=== PATIENT | female | born 1990 | race Caucasian/White ===

== ENCOUNTER 2017-02-07 19:42 | Emergency (ER) | payer SELFPAY ==
[~2017-02-07] VITALS: Ht 167.6 cm; Wt 112.2 kg
[~2017-02-07 19:42] MED LIST: IBUP600 PO; OXYC1SOL5 PO; PRENCAP6 PO
[2017-02-07 19:47] VITALS: BP 120/78; PULSE 83; RESP 18; TEMP 97.6; O2SAT 98
--- NOTE | 2017-02-07 20:12 | PD ---
HPI Chief Complaint: Abdominal Pain Time Seen by Provider: 19:56 Travel History International Travel<30 days: No Contact w/Intl Traveler<30days: No Traveled to known affect area: No History of Present Illness HPI The patient is a 26-year-old female, frequent visitor to the emergency department for minor problems who complains of nausea vomiting and left flank pain beginning today at 2 PM. The patient already went to [facility] in [facility] and the CT was done which was negative. Blood and urine and reportedly as negative there as well. She comes in to this hospital wanting something for primarily for the stabbing pain on her left. She has had this pain intermittently for over a year. She has multiple visits to our hospital system for similar pain. She was given a prescription for Zofran at [facility] and a shot of Norflex and Toradol. [facility] Past Medical History Medical History: Denies Significant Hx Tetanus Vaccination: < 5 Years Influenza Vaccination: No ?: Not LMP: 2 DAYS : 1 Para: 1 Past Surgical History Section: Yes Cholecystectomy: Yes Social History Alcohol Use: Yes (Occasionally) Tobacco Use: No Substance Use: No Allergies-Medications (Allergen,Severity, Reaction): Coded Allergies: No Known Allergies (Unverified , 02/07/17) Reported Meds & Prescriptions Reported Meds & Active Scripts Active No Active Prescriptions or Reported Medications Review of Systems Except as stated in HPI: all other systems reviewed are Neg Physical Exam Narrative GENERAL: The patient is obese, alert, oriented 3 and slight apparent distress with her left flank pain. Her vital signs are normal. SKIN: Focused skin assessment warm/dry. No skin rash is noted. HEAD: Atraumatic. Normocephalic. EYES: Pupils equal and round. No scleral icterus. No injection or drainage. ENT: No nasal bleeding or discharge. Mucous membranes pink and moist. NECK: Trachea midline. No JVD. CARDIOVASCULAR: Regular rate and rhythm. No murmur appreciated. RESPIRATORY: No accessory muscle use. Clear to auscultation. Breath sounds equal bilaterally. I can completely reproduce the patient's pain by pressing on the left floating ribs at the end of the ribs. GASTROINTESTINAL: Abdomen soft, non-tender, nondistended. Hepatic and splenic margins not palpable. MUSCULOSKELETAL: No obvious deformities. No clubbing. No cyanosis. No edema. NEUROLOGICAL: Awake and alert. No obvious cranial nerve deficits. Motor grossly within normal limits. Normal speech. PSYCHIATRIC: Appropriate mood and affect; insight and judgment normal. Data Data Last Documented VS Vital Signs Date Time Temp Pulse Resp B/P Pulse Ox O2 Delivery O2 Flow Rate FiO2 02/07/17 21:15 78 18 120/63 100 Room Air 02/07/17 19:47 97.6 Orders Complete Blood Count With Diff (02/07/17 20:12) Urinalysis - C+S If Indicated (02/07/17 20:12) Comprehensive Metabolic Panel (02/07/17 20:16) Lipase (02/07/17 20:16) Sodium Chlor 0.9% 1000 Ml Inj (Ns 1000 M (02/07/17 20:30) Ketorolac Inj (Toradol Inj) (02/07/17 20:30) Ondansetron Inj (Zofran Inj) (02/07/17 21:15) Tramadol (Ultram) (02/07/17 21:30) Labs Laboratory Tests Test 02/07/17 02/07/17 20:20 21:00 White Blood Count 6.9 TH/MM3 Red Blood Count 4.96 MIL/MM3 Hemoglobin 13.6 GM/DL Hematocrit 40.8 % Mean Corpuscular Volume 82.2 FL Mean Corpuscular Hemoglobin 27.5 PG Mean Corpuscular Hemoglobin 33.5 % Concent Red Cell Distribution Width 13.6 % Platelet Count 313 TH/MM3 Mean Platelet Volume 7.4 FL Neutrophils (%) (Auto) 70.4 % Lymphocytes (%) (Auto) 20.4 % Monocytes (%) (Auto) 6.4 % Eosinophils (%) (Auto) 2.5 % Basophils (%) (Auto) 0.3 % Neutrophils # (Auto) 4.8 TH/MM3 Lymphocytes # (Auto) 1.4 TH/MM3 Monocytes # (Auto) 0.4 TH/MM3 Eosinophils # (Auto) 0.2 TH/MM3 Basophils # (Auto) 0.0 TH/MM3 CBC Comment DIFF FINAL Differential Comment Sodium Level 143 MEQ/L Potassium Level 4.2 MEQ/L Chloride Level 109 MEQ/L Carbon Dioxide Level 25.6 MEQ/L Anion Gap 8 MEQ/L Blood Urea Nitrogen 13 MG/DL Creatinine 0.68 MG/DL Estimat Glomerular Filtration 104 ML/MIN Rate Random Glucose 79 MG/DL Calcium Level 8.7 MG/DL Total Bilirubin 0.3 MG/DL Aspartate Amino Transf 14 U/L (AST/SGOT) Alanine Aminotransferase 23 U/L (ALT/SGPT) Alkaline Phosphatase 64 U/L Total Protein 7.0 GM/DL Albumin 3.5 GM/DL Lipase 90 U/L Urine Color YELLOW Urine Turbidity CLEAR Urine pH 6.0 Urine Specific [place] 1.032 Urine Protein NEG mg/dL Urine Glucose (UA) NEG mg/dL Urine Ketones 80 OR GREATER mg/dL Urine Occult Blood NEG Urine Nitrite NEG Urine Bilirubin NEG Urine Leukocyte Esterase NEG Urine RBC 0-3 /hpf Urine Squamous Epithelial 0-5 /hpf Cells Urine Calcium Oxalate Crystals FEW /hpf Urine Amorphous Sediment FEW Urine Mucus MOD /lpf Microscopic Urinalysis Comment CULT NOT INDICATED MDM Medical Decision Making Medical Screen Exam Complete: Yes Emergency Medical Condition: Yes Medical Record Reviewed: Yes Interpretation(s) The CBC and complete metabolic profile are normal. The urine shows 80 ketones or greater and a few calcium oxalate crystals but is otherwise normal and culture is not indicated. Differential Diagnosis Musculoskeletal painchronic intermittent, urinary tract infection, ureteral stoneunlikely Narrative Course The patient appears to have musculoskeletal pain. She also has some nausea with this pain. She will be given Zofran and Motrin 600 mg 3 times daily. She is to follow-up with a primary care physician. Diagnosis Primary Impression: Musculoskeletal pain Additional Instructions: It appears that this pain is been coming on and off for over a year. Take the Motrin regularly, 1 tablet 3 times daily. Usually this pain will go away when you achieve high anti-inflammatory levels after about 3 or 4 days. Follow-up next week with a primary care physician. Med/Other Pt SpecificInfo: Prescription(s) given Scripts Ibuprofen 600 Mg [id number] Mg PO TID #33 TAB Ref 0 Prov:Daron Shultz MD 02/07/17 Disposition: 01 DISCHARGE HOME Condition: Stable Daron Shultz MD Feb 07, 2017 20:12
[2017-02-07 20:15] VITALS: BP 144/76; PULSE 79; RESP 18; O2SAT 99
[2017-02-07 20:29] LABS: AUTOMATED NEUTROPHIL # 4.8 TH/MM3 (1.8-7.7); BASOPHIL % 0.3 % (0.0-2.0); EOSINOPHIL # 0.2 TH/MM3 (0-0.4); EOSINOPHIL % 2.5 % (0.0-4.0); HEMATOCRIT 40.8 % (35.0-46.0); HEMO FLAGS DIFF FINAL; LYMPH % 20.4 % (9.0-44.0); LYMPHOCYTE # 1.4 TH/MM3 (1.0-4.8); MEAN CELL VOLUME 82.2 FL (80.0-100.0); MEAN CORPUSCULAR HEMOGLOBIN 27.5 PG (27.0-34.0); MEAN CORPUSCULAR HGB CONC 33.5 % (32.0-36.0); MONO % 6.4 % (0.0-8.0); NEUT % 70.4 % (16.0-70.0); PLATELET COUNT 313 TH/MM3 (150-450); RED BLOOD COUNT 4.96 MIL/MM3 (4.00-5.30); RED CELL DISTRIBUTION WIDTH 13.6 % (11.6-17.2); WHITE BLOOD COUNT 6.9 TH/MM3 (4.0-11.0)
[2017-02-07] MEDS ORDERED: KETOROLAC TROMETHAMINE 60 MG/2 ML (IM) VIAL IVP ONE (20:30)
[2017-02-07] MEDS ORDERED: SODIUM CHLOR 0.9% 1000 ML INJ 1,000 ML IV SCH (20:30)
[2017-02-07 20:48] LABS: CHLORIDE 109 MEQ/L (98-107); POTASSIUM 4.2 MEQ/L (3.5-5.1); SODIUM (NA) 143 MEQ/L (136-145)
[2017-02-07 20:52] LABS: ANION GAP 8 MEQ/L (5-15); BICARBONATE 25.6 MEQ/L (21.0-32.0); BLOOD UREA NITROGEN 13 MG/DL (7-18)
[2017-02-07 20:55] LABS: ALT (GPT) 23 U/L (10-53); AST (GOT) 14 U/L (15-37); GLOMERULAR FILTRATION RATE 104 ML/MIN (>89)
[2017-02-07 20:56] LABS: TOTAL BILIRUBIN ADULT 0.3 MG/DL (0.2-1.0)
[2017-02-07 20:58] LABS: ALKALINE PHOSPHATASE 64 U/L (45-117)
[2017-02-07 21:15] VITALS: BP 120/63; PULSE 78; RESP 18; O2SAT 100
[2017-02-07] MEDS ORDERED: ONDANSETRON HCL 4 MG/2 ML VIAL IV ONE (21:15)
[2017-02-07 21:19] LABS: BLOOD, URINE NEG (NEG); GLUCOSE,URINE NEG (NEG); NITRITE,URINE NEG (NEG)
[2017-02-07] MEDS ORDERED: traMADol HCL 50 MG TAB PO ONE (21:30)
[2017-02-07 21:45] LABS: KETONE, URINE 80 OR GREATER mg/dL (NEG)
[2017-02-07 21:46] LABS: URINE COLOR YELLOW (YELLW/STRAW)
[2017-02-07 21:47] LABS: MUCUS URINE MOD /lpf (OCC); SQUAMOUS EPITHELIAL CELL URINE 0-5 /hpf (0-5)
[2017-02-07 21:48] LABS: RBC, URINE 0-3 /hpf (0-3)
[2017-02-07 21:49] LABS: CALCIUM OXALATE CRYSTALS,URINE FEW /hpf; COMMENT (UR) CULT NOT INDICATED; CULTURE IF INDICATED CULT NOT INDICATED
[2017-02-07] MEDS ORDERED: IBUP-232 PO (22:09)
[2017-02-07 22:18] VITALS: RESP 18
[2017-02-07 22:25] VITALS: BP 116/65; TEMP 97.5
== END 2017-02-07 22:25 | disposition home or self-care (01) ==
LOC: PHED 19:42
DX: M79.1 Myalgia (principal)
CPT/HCPCS: 80053; 81001; 83690; 85025; 96361; 96374; 96375; 99284; J1885; J2405; J7030

== ENCOUNTER 2017-03-15 15:22 | Emergency (ER) | payer MEDICAID ==
[~2017-03-15] VITALS: Ht 167.6 cm; Wt 107.0 kg
[~2017-03-15 15:22] MED LIST changes: +IBUP-232 PO; -IBUP600 PO; -OXYC1SOL5 PO; -PRENCAP6 PO
[2017-03-15 15:26] VITALS: BP 125/59; PULSE 93; RESP 20; TEMP 98.1; O2SAT 98
--- NOTE | 2017-03-15 16:22 | PD ---
HPI Chief Complaint: Back/ Neck Pain or Injury Time Seen by Provider: 16:20 Travel History International Travel<30 days: No Contact w/Intl Traveler<30days: No Traveled to known affect area: No History of Present Illness HPI 26-year-old female with chief complaint of mid low back pain times one day. Patient reports while working in the [employer] she was bending over using a meat trimmer and felt a pop sensation in her low back and has had intense pain since. Patient reports the pain is localized to the low mid back, nonradiating , worse with movement, slightly improved with rest. She denies fever, chills, incontinence, saddle anesthesia, numbness/tingling/weakness in lower extremities. PFSH Past Medical History Medical History: Denies Significant Hx ?: Unknown LMP: 3.5 WEEKS AGO : 1 Para: 1 Past Surgical History Section: Yes Cholecystectomy: Yes Social History Alcohol Use: Yes (Occasionally) Tobacco Use: No Substance Use: No Allergies-Medications (Allergen,Severity, Reaction): Coded Allergies: No Known Allergies (Unverified , 02/07/17) Reported Meds & Prescriptions Reported Meds & Active Scripts Active Ibuprofen 600 Mg Tab 600 Mg PO TID Review of Systems Except as stated in HPI: all other systems reviewed are Neg General / Constitutional: No: Fever Eyes: No: Visual changes HENT: No: Headaches Cardiovascular: No: Chest Pain or Discomfort Respiratory: No: Shortness of Breath Gastrointestinal: No: Abdominal Pain Genitourinary: No: Dysuria Musculoskeletal: No: Pain Physical Exam Narrative GENERAL: Well-nourished, well-developed patient. SKIN: Focused skin assessment warm/dry. HEAD: Normocephalic. EYES: No scleral icterus. No injection or drainage. NECK: Supple, trachea midline. No JVD or lymphadenopathy. CARDIOVASCULAR: Regular rate and rhythm without murmurs, gallops, or rubs. RESPIRATORY: Breath sounds equal bilaterally. No accessory muscle use. GASTROINTESTINAL: Abdomen soft, non-tender, nondistended. MUSCULOSKELETAL: No cyanosis, or edema. Normal strength and sensation of lower extremities BACK: without obvious deformity. No CVA tenderness. Tender to palpation lumbar spine. Negative straight leg raise. 2+ DTRs Data Data Last Documented VS Vital Signs Date Time Temp Pulse Resp B/P Pulse Ox O2 Delivery O2 Flow Rate FiO2 03/15/17 15:26 98.1 93 20 125/59 98 Orders Spine, Lumbar Comp W/Obliq (03/15/17 ) Ed Urine Pregnancytest Poc (03/15/17 16:19) MDM Medical Decision Making Medical Screen Exam Complete: Yes Emergency Medical Condition: Yes Differential Diagnosis Lumbar strain versus sprain versus fracture Narrative Course 26-year-old female with chief complaint low back pain status post bending and twisting injury while at work yesterday. Patient reports pain is localized to the midline low back region. Her physical exam is reassuring. She has tenderness to the lumbar spine. X-ray reveal no fracture. Patient will be treated for lumbar strain and instructed to follow-up with her primary care doctor she verbalizes understanding and agrees to plan. Diagnosis Primary Impression: Low back pain Qualified Code: M54.5 - Acute midline low back pain without sciatica Referrals: Primary Care Physician Departure Forms: Tests/Procedures, Work Release Enter return to work date: Mar 16, 2017 Additional Instructions: Take the medication as prescribed. Avoid heavy lifting or strenuous activity. Follow-up with her primary care doctor. Return to emergency department if he developed new or worsening symptoms. Scripts Methocarbamol (Robaxin)500 Mg [id number] Mg PO TID PRN (MUSCLE SPASM) #12 TAB Prov:Keshia Bagley 03/15/17 Ibuprofen 800 Mg [id number] Mg PO Q8H PRN (Pain/Inflammation) #30 TAB Prov:Keshia Bagley 03/15/17 Disposition: 01 DISCHARGE HOME Condition: Stable Keshia Bagley Mar 15, 2017 16:22
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
[2017-03-15] MEDS ORDERED: ROBA500T PO (17:14)
[2017-03-15] MEDS ORDERED: IBUP800T23 PO (17:14)
[2017-03-15] MEDS ORDERED: KETOROLAC TROMETHAMINE 60 MG/2 ML (IM) VIAL IM ONE (17:15)
== END 2017-03-15 17:33 | disposition home or self-care (01) ==
LOC: PHED 15:22
DX: M54.5 Low back pain (principal); S39.012A Strain of muscle, fascia and tendon of lower back, initial encounter; X50.1XXA Overexertion from prolonged static or awkward postures, initial encounter; Y93.G1 Activity, food preparation and clean up; Y92.512 Supermarket, store or market as the place of occurrence of the external cause; Y99.0 Civilian activity done for income or pay
CPT/HCPCS: 72110; 84703; 96372; 99284; J1885

== ENCOUNTER 2017-08-07 17:19 | Emergency (ER) | payer MEDICAID ==
[~2017-08-07] VITALS: Ht 167.6 cm; Wt 114.4 kg
[~2017-08-07 17:19] MED LIST changes: +IBUP1TAB7 PO; +ROBA500T PO
[2017-08-07 17:23] VITALS: BP 150/65; PULSE 101; RESP 16; TEMP 98; O2SAT 99
--- NOTE | 2017-08-07 17:48 | PD ---
HPI Chief Complaint: Abdominal Pain Time Seen by Provider: 17:39 Travel History International Travel<30 days: No Contact w/Intl Traveler<30days: No Traveled to known affect area: No History of Present Illness HPI The patient was seen and examined in the presence of the nurse. This patient complains of left flank and left lower quadrant abdominal pain. Duration is one year. He never had it evaluated. No injury. Denies fever or vaginal discharge or bleeding. She doesn't think she is . Eating does not affect the pain. Symptoms severity is moderate. No alleviating factors. No exacerbating factors PFSH Past Medical History Hx Anticoagulant Therapy: No Diabetes: No ?: Not : 1 Para: 1 Past Surgical History Section: Yes Cholecystectomy: Yes Social History Alcohol Use: Yes (Occasionally) Tobacco Use: No Substance Use: No Allergies-Medications (Allergen,Severity, Reaction): Coded Allergies: No Known Allergies (Unverified Adverse Reaction, Unknown, 08/07/17) Reported Meds & Prescriptions Reported Meds & Active Scripts Active Tramadol (Tramadol HCl) 50 Mg Tab 50 Mg PO Q6H PRN Zofran (Ondansetron HCl) 4 Mg Tab 4 Mg PO Q6HR PRN Robaxin (Methocarbamol) 500 Mg Tab 500 Mg PO TID PRN Ibuprofen 800 Mg Tab 800 Mg PO Q8H PRN Ibuprofen 600 Mg Tab 600 Mg PO TID Review of Systems General / Constitutional: No: Fever Eyes: No: Visual changes HENT: No: Headaches Cardiovascular: No: Chest Pain or Discomfort Respiratory: No: Shortness of Breath Gastrointestinal: Positive: Abdominal Pain Genitourinary: Positive: Flank Pain, No: Dysuria Musculoskeletal: No: Pain Skin: No Rash Neurologic: No: Weakness Psychiatric: No: Depression Endocrine: No: Polydipsia Hematologic/Lymphatic: No: Easy Bruising Physical Exam Narrative GENERAL: Well-nourished, well-developed patient with left side pain . SKIN: Focused skin assessment reveals no rash and nodules. Skin is Warm and dry. HEAD: Atraumatic. Normocephalic. EYES: Pupils equal and round. No scleral icterus. No injection or drainage. ENT: No nasal bleeding or discharge. Mucous membranes pink and moist. NECK: Trachea midline. No JVD. CARDIOVASCULAR: Regular rate and rhythm. No murmur appreciated. RESPIRATORY: No accessory muscle use. Clear to auscultation. Breath sounds equal bilaterally. GASTROINTESTINAL: Abdomen soft, left lower quadrants tender without rebound or guarding, nondistended. Hepatic and splenic margins not palpable. MUSCULOSKELETAL: No obvious deformities. No clubbing. No cyanosis. No edema. Some left-sided CVA tenderness NEUROLOGICAL: Awake and alert. No obvious cranial nerve deficits. Motor grossly within normal limits. Normal speech. PSYCHIATRIC: Appropriate mood and affect; insight and judgment normal. Data Data Last Documented VS Vital Signs Date Time Temp Pulse Resp B/P (MAP) Pulse Ox O2 Delivery O2 Flow Rate FiO2 08/07/17 17:23 98.0 101 16 150/65 (93) 99 Orders Orders Urinalysis - C+S If Indicated (08/07/17 17:25) Ed Urine Pregnancytest Poc (08/07/17 17:25) Ct Abd/Pel W/O Iv Contrast (08/07/17 ) Ondansetron Odt (Zofran Odt) (08/07/17 18:15) Acetamin-Hydrocod 325-5 Mg ([place] 5-325 (08/07/17 18:45) Labs Laboratory Tests Test 08/07/17 17:50 Urine Collection Type CLEAN CATCH Urine Color YELLOW Urine Turbidity SLIGHT Urine pH 6.0 Urine Specific [place] 1.025 Urine Protein NEG mg/dL Urine Glucose (UA) NEG mg/dL Urine Ketones NEG mg/dL Urine Occult Blood TRACE Urine Nitrite NEG Urine Bilirubin NEG Urine Leukocyte Esterase NEG Urine RBC 0-3 /hpf Urine Squamous Epithelial Cells > 8 /hpf Urine Amorphous Sediment MOD Microscopic Urinalysis Comment CULT NOT INDICATED Urine Collection Time 1750 [facility] Medical Decision Making Medical Screen Exam Complete: Yes Emergency Medical Condition: Yes Medical Record Reviewed: Yes Differential Diagnosis Ectopic, kidney stone, ovarian cystic disease Narrative Course I have reviewed the patient's electronic medical record. Urine is negative Urinalysis is clean CT of abdomen and pelvis is negative except for a 1 mm nonobstructing stone which is incidental Etiology of her 1 year pain is unclear. Recommend primary care follow-up. I wrote some medicine for pain and nausea to use as needed Diagnosis Primary Impression: Chronic left flank pain Additional Instructions: The patient was advised to follow up with their physician and return if they worsen. The patient was warned about potential sedation for the medications they will receive on prescription. Med/Other Pt SpecificInfo: Prescription(s) given Scripts Tramadol (Tramadol) 50 Mg Tab 50 MG PO Q6H Y for PAIN, #20 TAB 0 Refills Prov: Remy Vela MD 08/07/17 Ondansetron (Zofran) 4 Mg Tab 4 MG PO Q6HR Y for NAUSEA OR VOMITING, #15 TAB 0 Refills Prov: Remy Vela MD 08/07/17 Disposition: 01 DISCHARGE HOME Condition: Stable Remy Vela MD Aug 07, 2017 17:48
[2017-08-07 18:07] LABS: BILIRUBIN, URINE NEG (NEG); BLOOD, URINE TRACE (NEG); GLUCOSE,URINE NEG (NEG); KETONE, URINE NEG (NEG); NITRITE,URINE NEG (NEG); URINE LEUKOCYTE ESTERASE NEG (NEG)
[2017-08-07] MEDS ORDERED: ONDANSETRON ODT 4 MG TAB PO ONE (18:15)
[2017-08-07 18:16] LABS: URINE COLOR YELLOW (YELLW/STRAW)
[2017-08-07 18:17] LABS: AMORPHOUS SEDIMENT, URINE MOD; RBC, URINE 0-3 /hpf (0-3); SQUAMOUS EPITHELIAL CELL URINE > 8 /hpf (0-5)
--- NOTE | 2017-08-07 18:19 | RADRPT ---
EXAM DATE/TIME: 08/07/2017 18:01 [facility] COMPARISON: No previous studies available for comparison. INDICATIONS : Left flank pain. Evaluate for renal calculi. ORAL CONTRAST: No oral contrast ingested. RADIATION DOSE: 25.93 CTDIvol (mGy) ; Patient body habitus MEDICAL HISTORY : None SURGICAL HISTORY : Cholecystectomy. section. ENCOUNTER: Initial ACUITY: 1 yr PAIN SCALE: 5/10 LOCATION: Left flank TECHNIQUE: Volumetric scanning of the abdomen and pelvis was performed. Using automated exposure control and ad justment of the mA and/or kV according to patient size, radiation dose was kept as low as reasonably achievable to obtain optimal diagnostic quality images. DICOM format image data is available electro nically for review and comparison. FINDINGS: CT Abdomen: The liver, spleen, pancreas, right kidney, adrenals are unremarkable. There is no evidenc e for any appreciable pathological adenopathy, free fluid, or bowel obstruction. There is a tiny 1 m m nonobstructing stone in the left kidney. There is no ureteral stone and there is no hydronephrosis on either side. CT pelvis: There is no evidence for mass, abscess formation, or any significant adenopathy within the pelvis. CONCLUSION: Tiny nonobstructing stone left kidney. Sincere Martinez MD on August 07, 2017 at 18:14 Board Certified Radiologist. This report was verified electronically.
[2017-08-07] MEDS ORDERED: TRAM50TA PO (18:36)
[2017-08-07] MEDS ORDERED: ZOFR4TAB PO (18:36)
[2017-08-07] MEDS ORDERED: ACETAMINOPHEN/HYDROcodone 325 MG/5 MG TAB PO ONE (18:45)
[2017-08-07 19:06] VITALS: BP 152/66; PULSE 90; RESP 18; O2SAT 98
== END 2017-08-07 19:20 | disposition home or self-care (01) ==
LOC: PHED 17:19
DX: R10.9 Unspecified abdominal pain (principal); R10.32 Left lower quadrant pain; G89.29 Other chronic pain; R11.0 Nausea
CPT/HCPCS: 74176; 81001; 84703; 99284

== ENCOUNTER 2017-12-14 18:41 | Emergency (ER) | payer MEDICAID ==
[~2017-12-14] VITALS: Ht 167.6 cm; Wt 106.0 kg
[~2017-12-14 18:41] MED LIST changes: +TRAM50TA PO; +ZOFR4TAB PO
[2017-12-14 18:57] VITALS: BP 136/70; PULSE 98; RESP 18; TEMP 98.7; O2SAT 99
--- NOTE | 2017-12-14 20:58 | PD ---
HPI Chief Complaint: Back/ Neck Pain or Injury Time Seen by Provider: 20:48 Travel History International Travel<30 days: No Contact w/Intl Traveler<30days: No Traveled to known affect area: No History of Present Illness HPI 27yo F with no PMH presents with lower back pain s/p trip and fall at 6pm today. Said she was getting out of work and her pants are too long so she tripped and fell on her left side. When her coworker helped her up, she thought she heard a pop in her back. Pt able to ambulate after but with pain. Denies any focal weakness or numbness, head trauma, LOC, chest pain, sob, n/v, abdominal pain, urinary incontinence. Pt did not take anything for pain at home. PFSH Past Medical History Hx Anticoagulant Therapy: No Diabetes: No ?: Not LMP: 12/22/17 : 1 Para: 1 Past Surgical History Section: Yes Cholecystectomy: Yes Social History Alcohol Use: Yes (Occasionally) Tobacco Use: No Substance Use: No Allergies-Medications (Allergen,Severity, Reaction): Coded Allergies: No Known Allergies (Unverified Adverse Reaction, Unknown, 08/07/17) Reported Meds & Prescriptions Reported Meds & Active Scripts Active Tramadol (Tramadol HCl) 50 Mg Tab 50 Mg PO Q6H PRN Zofran (Ondansetron HCl) 4 Mg Tab 4 Mg PO Q6HR PRN Robaxin (Methocarbamol) 500 Mg Tab 500 Mg PO TID PRN Ibuprofen 800 Mg Tab 800 Mg PO Q8H PRN Ibuprofen 600 Mg Tab 600 Mg PO TID Review of Systems Except as stated in HPI: all other systems reviewed are Neg Physical Exam Narrative GENERAL: 27yo F in mild distress. SKIN: Focused skin assessment warm/dry. HEAD: Atraumatic. Normocephalic. EYES: Pupils equal and round. No scleral icterus. No injection or drainage. ENT: No nasal bleeding or discharge. Mucous membranes pink and moist. NECK: Trachea midline. No JVD. CARDIOVASCULAR: Regular rate and rhythm. No murmur appreciated. RESPIRATORY: No accessory muscle use. Clear to auscultation. Breath sounds equal bilaterally. GASTROINTESTINAL: Abdomen soft, non-tender, nondistended. BACK: +TTP midline L4-L5. +Left paraspinal muscle L4-L5. MUSCULOSKELETAL: No obvious deformities. No clubbing. No cyanosis. No edema. NEUROLOGICAL: Awake and alert. No obvious cranial nerve deficits. Motor grossly within normal limits in all extremities. Sensation equal bilaterally. Normal speech. PSYCHIATRIC: Appropriate mood and affect; insight and judgment normal. Data Data Last Documented VS Vital Signs Date Time Temp Pulse Resp B/P (MAP) Pulse Ox O2 Delivery O2 Flow Rate FiO2 12/14/17 18:57 98.7 98 18 136/70 (92) 99 Orders Orders Diazepam (Valium) (12/14/17 21:00) Ketorolac Inj (Toradol Inj) (12/14/17 21:00) Spine, Lumbar - Ltd (Ap & Lat) (12/14/17 ) Acetamin-Hydrocod 325-5 Mg ([place] 5-325 (12/14/17 22:30) MDM Medical Decision Making Medical Screen Exam Complete: Yes Emergency Medical Condition: Yes Differential Diagnosis Musculoskeletal pain vs. muscle sprain vs. disc herniation vs. fracture vs. contusion Narrative Course 27yo F with lower back pain s/p mechanical fall today. No focal neurologic deficits. Xray LS unremarkable. Pt given valium and toradol but still with pain. Pt then given lortab and said pain has resolved. Pt feels better and wants to go home. Return precautions given. Diagnosis Primary Impression: Low back pain Qualified Codes: M54.5 - Low back pain Patient Instructions: General Instructions Departure Forms: Tests/Procedures Additional Instructions: Please follow up with your primary care physician in 2-3 days. Return to the ED if symptoms worsen. Med/Other Pt SpecificInfo: Prescription(s) given Scripts Acetaminophen (Tylenol) 325 Mg Tab 650 MG PO Q6H Y for PAIN SCALE 1 TO 4, #20 TAB 0 Refills Prov: Rose Mary Westbrook 12/14/17 Disposition: 01 DISCHARGE HOME Condition: Stable Rose Mary Westbrook December 14, 2017 20:58
[2017-12-14] MEDS ORDERED: DIAZEPAM 5 MG TAB PO ONE (21:00)
[2017-12-14] MEDS ORDERED: KETOROLAC TROMETHAMINE 60 MG/2 ML (IM) VIAL IM ONE (21:00)
--- NOTE | 2017-12-14 21:16 | RADRPT ---
EXAM DATE/TIME: 12/14/2017 21:09 [facility] COMPARISON: No previous studies available for comparison. INDICATIONS : Pain due to fall MEDICAL HISTORY : None. SURGICAL HISTORY : section. Cholecystectomy. ENCOUNTER: Initial ACUITY: 1 day PAIN SCORE: 7/10 LOCATION: L-spine FINDINGS: Two view examination was performed. There are five non-rib bearing vertebral bodies. The vertebral bodies are in normal alignment without evidence of subluxation or scoliosis. The disc spaces are jorge ntained. The pedicles are intact. Bony mineralization is normal. No fracture is identified. Cholec ystectomy clips. CONCLUSION: Unremarkable limited examination of the lumbar spine. Rupesh Marquez MD on December 14, 2017 at 21:13 Board Certified Radiologist. This report was verified electronically.
[2017-12-14] MEDS ORDERED: ACETAMINOPHEN/HYDROcodone 325 MG/5 MG TAB PO ONE (22:30)
[2017-12-14] MEDS ORDERED: TYLE325T PO (23:14)
== END 2017-12-14 23:40 | disposition home or self-care (01) ==
LOC: NEPD 18:41
DX: M54.5 Low back pain (principal); W01.0XXA Fall on same level from slipping, tripping and stumbling without subsequent striking against object, initial encounter
CPT/HCPCS: 72100; 96372; 99283; J1885